=== PATIENT | male | born 1970 | race Caucasian/White ===

== ENCOUNTER → 2024-02-06 07:05 | Outpatient (REF) | payer OTHER, SELFPAY | LOC: RAD 07:05 | PROVIDERS: ATTENDING PHYSICIAN Urology; FAMILY PHYSICIAN Family Medicine | DX: N20.0 Calculus of kidney (principal) | CPT/HCPCS: 76775 ==

== ENCOUNTER → 2024-03-11 06:28 | Day surgery (SDC) | payer OTHER, SELFPAY | LOC: GI 06:28 | PROVIDERS: ATTENDING PHYSICIAN Internal Medicine | DX: Z12.11 Encounter for screening for malignant neoplasm of colon (principal); K57.30 Diverticulosis of large intestine without perforation or abscess without bleeding; D12.5 Benign neoplasm of sigmoid colon | CPT/HCPCS: 45385; 88305 ==

== ENCOUNTER → 2024-04-19 13:55 | Outpatient (REF) | payer OTHER, SELFPAY | LOC: HWRAD 13:55 | PROVIDERS: ATTENDING PHYSICIAN Urology; FAMILY PHYSICIAN Family Medicine | DX: N20.0 Calculus of kidney (principal) | CPT/HCPCS: 74176 ==

== ENCOUNTER 2024-04-20 09:25 | Emergency (ER) | payer OTHER, SELFPAY ==
[2024-04-20 09:31] VITALS: BP 128/62
--- NOTE | 2024-04-20 10:31 | ED.GENMED ---
History of Present Illness
General
Chief Complaint: Urinary Symptoms
Source: patient
Exam Limitations: none
Time Seen by Provider: 04/20/24 10:18
History of Present Illness
History of Present Illness:
See MDM
Past History
Past History
ED Past Medical History: Other (Kidney stones, Migraines); Negative Asthma, HTN, Hypercholesterolemia or NIDDM
ED Past Surgical History: None
Social History
Tobacco: Non-smoker
Alcohol: Occasional
Personal:
Living: with family
Phy Exam
Physical Exam
Physical Exam:
See MDM
Course
Orders/Labs/Results
Orders:
Orders
04/20/24 10:38
Complete Blood Count/With Diff Urgent
Comprehensive Metabolic Panel Urgent
Urinalysis Reflex To Culture Urgent
Date Specimen was Collected: 04/20/24
Time Specimen was Collected: 10:37
Urine Microscopic Reflex Cult Urgent
Urine Culture Urgent
DAVID Source: U
Specimen Description:
Date Specimen was Collected: 04/20/24
Time Specimen was Collected: 10:37
04/20/24 12:01
LevoFLOXacin [Levaquin] 500 mg PO NOW STA
Abnormal Lab Results
04/20/24
10:38
RBC 4.57 L 10^6/uL
(4.70-6.10)
Hct 37.8 L %
(39.0-52.0)
BUN 21 H mg/dl
(9-20)
Glucose 136 H mg/dl
(70-99)
Urine Ketones Trace A
(Negative)
Ur Occult Blood Reflex 4+ A
(Negative)
Urine Nitrite (Reflex) Positive A
(Negative)
Urine Bilirubin 1+ A
(Negative)
Leukocyte Esterase Rfl 1+ A
(Negative)
Urine Albumin (Reflex) 1+ A
(Neg - Trace)
04/20/24 10:38
04/20/24 10:38
Vital Signs
Initial and Last Documented VS:
Initial Vital Signs
Temp Pulse Resp BP Pulse Ox
98.7 F 71 16 128/62 97
04/20/24 09:31 04/20/24 09:31 04/20/24 09:04/20/24 09:31 04/20/24 09:31
Last Documented Vital Signs
Temp Pulse Resp BP Pulse Ox
98.7 F 71 16 128/62 97
04/20/24 09:04/20/24 09:31 04/20/24 09:31 04/20/24 09:31 04/20/24 09:31
MDM/Problems Addressed
Differential Diagnosis Includes:
HPI and MDM Narrative:
53-year-old male presenting with cloudy and blood-tinged urine. Patient developed left back pain a few days ago. Given his prior history of kidney stones, he had an outpatient CT which confirms a 4.5 mm stone in the proximal left ureter. He was
already started on Toradol and Flomax. Patient states his pain is bearable. He is more concerned about the color of the urine
On exam, he is extremely well-appearing nontoxic. Will obtain basic blood work looking for evidence of leukocytosis will obtain urinalysis looking for any evidence of infection.
Physical exam
General: Well appearing and non-toxic
HEENT: protecting airway
Neck: appears supple
CV: No evidence of cyanosis
Resp: No accessory muscle use
Abd: Non-distended
Back: No CVA tenderness
Extremities: No deformities
Neuro: alert
Psych: Normal affect
Skin: No rash on back noted
Problems Addressed including Acute and Chronic Conditions affecting care:
1. Left ureterolithiasis with hydronephrosis
Acuity: acute
Prognosis: stable
Details: Pain is well-controlled. Will obtain urinalysis and basic blood work
2. [ ]
Acuity: acute
Prognosis: stable
Details:
3. [ ]
Acuity: acute
Prognosis: stable
Details:
4. [ ]
Acuity: acute
Prognosis: stable
Details:
5. [ ]
Acuity:
Prognosis:
Details:
Updates
Blood work shows no leukocytosis. On multiple reassessments, patient remains well-appearing and nontoxic. Urine is concerning for nitrites. Given the obstructive stone and the concern for UTI, urology curb sided. Given how well-appearing he is
with no leukocytosis and no fever, it was shared decision making to start Levaquin and discharge. Patient very comfortable with this plan as well and given strict return precautions
Differential Diagnosis (but not limited to): Hematuria, UTI
Testing considered: Repeat CT but it was just done yesterday.
Drug therapy (if applicable): OTC meds, please see d/c instruction regarding Rx drugs
Amount and/or Complexity of Data Reviewed
Clinical info obtained from: Patient
External data reviewed: N/A
Labs I independently reviewed (but not limited to): WBC normal
Radiology: N/A
Pulse Ox: not hypoxic
EKG independently reviewed: N/A
Redipper: N/A
Critical Care: N/A
Risk of Complication:
Social Determinants of health: Good social support
Discussed with other providers: urology
Escalation of Care includes Admit/Obs: After being observed in the Emergency Department, pt stable for discharge.
Occasional wrong word or 'sound a like' substitutions may have occurred due to the inherent limitations of voice recognition software. Read the chart carefully and recognize, using context, where substitutions have occurred.
*Critical Care Note
Total Time (30-74mins, 75-104mins- exclusive of procedures): Not Applicable
ED Attending Note
-
Portions of this chart may have been created with voice recognition software.� Occasional wrong word or��sound alike� substitutions may have occurred due to the inherent limitations of voice recognition software.
Discharge Plan
Departure
Patient Disposition: Home (Routine Discharge)
Date of Disposition: 04/20/24
Time of Disposition: 12:03
Patient with high blood pressure during this ER visit?: No
Discharge Problem:
Acute UTI
Instructions: Urinary Tract Infection, Adult (DC)
Prescriptions:
New
levofloxacin 500 mg Tablet
500 mg PO DAILY Qty: 6 0RF
No Action
hydrocodone-acetaminophen 1 TABLET tablet
1 tab PO Q4HPRN PRN (Reason: severe pain) Qty: 8 0RF
tamsulosin 0.4 MG capsule
0.4 mg PO DAILY Qty: 14 0RF
ondansetron 4 MG tablet,disintegrating
4 mg PO TIDPRN PRN (Reason: nausea/vomiting) Qty: 8 0RF
Referrals:
Ruben Wesley MD [Family Provider] -
Activity Restrictions/Additional Instructions:
Please return for any worsening symptoms.
You may return at any time if you have further concerns.
Return immediately if you develop any fevers.
Please follow up with your urologist.
Thank you for choosing [facility].
Interventions
Interventions:
*Risk Screen - Suicide Last Done: 04/20/24 09:33
*General Assessment Last Done: 04/20/24 09:33
*Neglect/Abuse Screening Last Done: 04/20/24 09:33
*ED COVID-19 Vaccine History Last Done: 04/20/24 09:33
ED-Male Genitourinary Assessment Last Done: 04/20/24 11:14
Discharge Date and Time
Print Language: ALBAN[place]
[2024-04-20 10:59] LABS: Urine Albumin 1+ (Neg - Trace); Urine Bilirubin 1+ (Negative); Urine Character Slightly Cloudy (Clear); Urine Color Brown; Urine Glucose Negative (Negative); Urine Ketone Trace (Negative); Urine Leukocyte 1+ (Negative); Urine Nitrite Positive (Negative); Urine Occult Blood 4+ (Negative); Urine Specific Gravity 1.025 (<1.030); Urine Urobilinogen 1+ (Neg - 1+)
[2024-04-20 11:00] LABS: % Basophils 0.5 % (0-2); % Eosinophils 0.8 % (0-6); % Immature Granulocytes 0.4 % (0-0.5); % Lymphocytes 20.9 % (20.5-51.1); % Monocytes 5.8 % (1.7-9.3); % Neutrophils 71.6 % (42.2-75.2); ALT (SGPT) 17 U/L (0-50); AST (SGOT) 20 U/L (17-59); Absolute Eosinophils 0.1 10^3/uL (0-0.7); Absolute Lymphocytes 1.8 10^3/uL (1.2-3.4); Absolute Monocytes 0.5 10^3/uL (0.1-0.6); Albumin 4.3 g/dl (3.5-5.0); Alkaline Phosphatase 67 U/L (38-126); Blood Urea Nitrogen 21 mg/dl (9-20); Calcium 9.2 mg/dl (8.4-10.2); Carbon Dioxide 27 mmol/L (22-30); Chloride 102 mmol/L (98-107); Glucose 136 mg/dl (70-99); Hematocrit 37.8 % (39.0-52.0); Hemoglobin 13.6 g/dL (13.0-18.0); Mean Corpuscular Hgb 29.8 pg (27.0-31.0); Mean Corpuscular Volume 82.7 fL (80.0-94.0); Nucleated Red Blood Cells % 0 % (-); Platelet Count 250 10^3/uL (130-400); Potassium 4.4 mmol/L (3.5-5.1); Red Blood Cell Count 4.57 10^6/uL (4.70-6.10); Red Cell Dist. Width 12.9 % (11.5-14.5); Sodium 137 mmol/L (135-145); Total Bilirubin 0.9 mg/dl (0.2-1.3); Total Protein 6.5 g/dl (6.3-8.2); White Blood Cell Count 8.4 10^3/uL (4.8-10.8); eGFR > 60.00
[2024-04-20] MEDS: LEVAQUIN 500 MG PO (12:04)
[2024-04-20 12:35] LABS: Urine Calcium Oxalate Crystals Present; Urine Red Blood Cell >100 /HPF (0-2); Urine Squamous Cell 0-2 /LPF (Few)
== END 2024-04-20 12:12 | disposition home or self-care (01) ==
LOC: EMR 09:25
PROVIDERS: EMERGENCY PHYSICIAN Student in an Organized Health Care Education/Training Program; FAMILY PHYSICIAN Family Medicine
DX: N39.0 Urinary tract infection, site not specified (principal)
CPT/HCPCS: 99283; 80053; 81003; 81015; 85025; 87086